=== PATIENT | female | born 1980 | race Caucasian/White ===

== ENCOUNTER 2022-03-10 15:46 | Outpatient (CLI) | payer OTHER, SELFPAY ==
[2022-03-10 16:59] LABS: HIV 1/2 Ab P24 Ag Result Negative (Negative)
[2022-03-10 17:06] LABS: Hepatitis B Surface Antigen Negative (Negative)
[2022-03-10 17:24] LABS: Hepatitis C Virus Antibody Negative (Negative)
[2022-03-10 17:25] LABS: Rapid Plasma Reagin Non-Reactive (NonReactive)
== END 2022-03-10 15:47 | disposition home or self-care (01) ==
LOC: ANHLAB 15:49
PROVIDERS: PCP Emergency Medicine; Visit Provider Student in an Organized Health Care Education/Training Program
DX: A64 Unspecified sexually transmitted disease (principal)
CPT/HCPCS: 36415; 86592; 86703; 86803; 87340; G0432

== ENCOUNTER 2022-10-06 14:09 | Outpatient (CLI) | payer OTHER, SELFPAY | END 2022-10-06 14:10 | disposition home or self-care (01) | PROVIDERS: PCP Emergency Medicine; Visit Provider Internal Medicine Cardiovascular Disease | DX: R07.9 Chest pain, unspecified (principal) | CPT/HCPCS: 93005 ==

== ENCOUNTER 2022-11-21 09:00 | Outpatient (CLI) | payer OTHER, SELFPAY ==
--- NOTE | 2022-11-21 09:11 | EST_ITS ---
Patient Info Name: Radha Llanos Age: 42 years : 1980 Gender: Female Ht: 66 in Wt: 156 lbs BSA: 1.83 m2 HR: 79 bpm BP: 113 / 78 mmHg Heart Rhythm: Sinus Rhythm Technical Quality: Good Exam Date: 11/21/2022 9:28 AM Exam Location: [facility] Patient Status: Outpatient Admit Date: 11/21/2022 Staff Ordering Physician: Asher Santos DO Attending Provider: Asher Santos DO Exercise Technologist: Leonora Montoya CRT Exercise Physician: Janneth Bansal CEP Exam Type: CA stress test treadmill Study Info Indications ChestPain - An exercise stress test was performed. History/Risk Factors Dyslipidemia: Yes History/Risk Factors Dyslipidemia. Chest Pain. Summary 1. 1. Abnormal Scott exercise stress test for ischemic ST changes by ECG criteria. 2. 2. Good functional capacity, achieving 11.8 METs of workload. 3. 3. Appropriate HR response to exercise. 4. 4. Appropriate HR recovery at 1 minute post exercise. 5. 5. No imaging with stress testing. Protocol: Scott Stress ECG Details Stage: REST Duration (min): 0 min : 51 sec Speed (mph): 0.0 Grade (%): 0 HR (bpm): 78 SBP (mmHg): 114 DBP (mmHg): 80 METS: --- Stage: REST Duration (min): 4 min : 36 sec Speed (mph): 0.0 Grade (%): 0 HR (bpm): 76 SBP (mmHg): 114 DBP (mmHg): 80 METS: --- Stage: STAGE 1 Duration (min): 1 min : 0 sec Speed (mph): 1.7 Grade (%): 10 HR (bpm): 92 SBP (mmHg): 114 DBP (mmHg): 80 METS: --- Stage: STAGE 1 Duration (min): 2 min : 0 sec Speed (mph): 1.7 Grade (%): 10 HR (bpm): 107 SBP (mmHg): 114 DBP (mmHg): 80 METS: --- Stage: STAGE 1 Duration (min): 3 min : 0 sec Speed (mph): 1.7 Grade (%): 10 HR (bpm): 107 SBP (mmHg): 113 DBP (mmHg): 78 METS: --- Stage: STAGE 2 Duration (min): 1 min : 0 sec Speed (mph): 2.5 Grade (%): 12 HR (bpm): 122 SBP (mmHg): 99 DBP (mmHg): 62 METS: --- Stage: STAGE 2 Duration (min): 2 min : 0 sec Speed (mph): 2.5 Grade (%): 12 HR (bpm): 128 SBP (mmHg): 99 DBP (mmHg): 62 METS: --- Stage: STAGE 2 Duration (min): 3 min : 0 sec Speed (mph): 2.5 Grade (%): 12 HR (bpm): 133 SBP (mmHg): 131 DBP (mmHg): 72 METS: --- Stage: STAGE 3 Duration (min): 1 min : 0 sec Speed (mph): 3.4 Grade (%): 14 HR (bpm): 145 SBP (mmHg): 131 DBP (mmHg): 72 METS: --- Stage: STAGE 3 Duration (min): 2 min : 0 sec Speed (mph): 3.4 Grade (%): 14 HR (bpm): 152 SBP (mmHg): 131 DBP (mmHg): 72 METS: --- Stage: STAGE 3 Duration (min): 3 min : 0 sec Speed (mph): 3.4 Grade (%): 14 HR (bpm): 156 SBP (mmHg): 155 DBP (mmHg): 73 METS: --- Stage: STAGE 4 Duration (min): 0 min : 54 sec Speed (mph): 4.2 Grade (%): 16 HR (bpm): 164 SBP (mmHg): 155 DBP (mmHg): 73 METS: --- Stage: RECOVERY Duration (min): 0 min : 5 sec Speed (mph): 1.5 Grade (%):
== END 2022-11-21 09:01 | disposition home or self-care (01) ==
LOC: CHSCARD 09:01
PROVIDERS: PCP Emergency Medicine; Visit Provider Internal Medicine Cardiovascular Disease
DX: R07.9 Chest pain, unspecified (principal)
CPT/HCPCS: 93017